=== PATIENT | female | born 1990 | race Caucasian/White ===

== ENCOUNTER 2019-11-09 21:36 | Emergency (ER) | payer OTHER, SELFPAY ==
[2019-11-09 21:47] LABS: Glucose Point of Care 360 (65-105)
[2019-11-09 21:49] VITALS: BP 137/80; PULSE 77; RESP 15; TEMP 37.3; O2SAT 97
[2019-11-09 22:22] LABS: Basophils Percent Auto 0.4 % (0.2-1.2); Eosinophils Percent Auto 0.5 % (0-4.4); Hematocrit 39.2 % (37.0-47.0); Hemoglobin 13.8 g/dL (12.0-15.0); Immature Granulocyte Absolute 0.02 K/mm3 (0.00-0.031); Immature Granulocyte Percent A 0.3 % (0-0.5); Lymphocytes Absolute Auto 2.32 K/mm3 (0.9-3.2); Lymphocytes Percent Auto 30.2 % (18.3-44.2); Mean Corpuscular HGB Conc 35.2 g/dl (32-36); Mean Corpuscular Hemoglobin 32.9 pg (26-34); Mean Corpuscular Volume 93.3 fl (80-100); Mean Platelet Volume 11.8 fl (7.4-10.4); Monocytes Absolute Auto 0.4 K/mm3 (0.1-0.6); Monocytes Percent Auto 4.8 % (2.6-8.5); Neutrophils Absolute Auto 4.9 K/mm3 (1.3-6.7); Neutrophils Percent Auto 63.8 % (45.5-73.1); Platelet Count Result 226 k/mm3 (150-375); Red Cell Distribution Width 11.6 % (11.5-14.5); White Blood Count 7.7 K/mm3 (4.5-10.0)
[2019-11-09 22:37] LABS: Add Urine Microscopic? YES; Appearance Urine Clear (Clear); Bilirubin Urine Negative (Negative); Blood Urine Negative (Negative); Color Urine Straw (Yellow); Glucose Urine UA 3+ mg/dL (Negative); Ketones Urine 2+ mg/dL (Negative); Leukocyte Esterase Ur Negative LEU/UL (Negative); Mucus Urine Rare /lpf; Nitrate Urine Negative (Negative); Protein Urine Negative (Negative); RBC Urine 0-2 /hpf (0-2); Squamous Epithelial Cell Urine Occasional /hpf (Few); Urobilinogen Urine Negative mg/dL (<2.0); WBC Urine 0-3 /hpf
[2019-11-09 22:38] LABS: Alanine Aminotransferase 21 U/L (4-35); Albumin Level 4.3 g/dL (3.5-5.1); Alkaline Phosphatase 45 U/L (38-126); Aspartate Amino Transferase 19 U/L (14-36); Bilirubin,Total 0.6 mg/dL (0.2-1.3); Blood Urea Nitrogen 15 mg/dL (7-17); Calcium 8.7 mg/dL (8.4-10.2); Carbon Dioxide 24 mmol/L (22-30); Chloride 102 mmol/L (98-107); Estimated Glomerular Filt Rate > 60; Glucose 328 mg/dL (65-105); Magnesium 1.9 mg/dL (1.6-2.3); Potassium 3.9 mmol/L (3.4-5.0); Sodium 136 mmol/L (137-145)
[2019-11-09 22:39] LABS: Specific Grav Ur 1.037 (1.001-1.035)
[2019-11-09] MEDS: SODIUM CHLORIDE 0.9% IV 1,000 ML 999 ML IV CONT (23:28)
--- NOTE | 2019-11-09 23:38 | ED.NAVMDI ---
HPI - Nausea/Vomiting/Diarrhea General Chief complaint: Recheck/Abnormal Lab/Rx Stated complaint: Possible DKA Time Seen by Provider: 11/09/19 23:10 History of Present Illness HPI Narrative: 29 yo female w/ h/o type I DM presents c/o possible DKA. She reports that she has not been feeling well for a couple of days. She is feeling nauseated. She has been having trouble controling her blood sugar and when she checked her urine it was positive for ketones. Related Data Home Medications Medication Instructions Recorded Confirmed insulin aspart U-100 100 unit/mL 1 sliding scale dose SUB-Q 03/27/19 10/30/19 subcutaneous solution USEASDIRECTD losartan 25 mg tablet 25 mg PO DAILY 10/30/19 10/30/19 Allergies Allergy/AdvReac Type Severity Reaction Status Date / Time hydromorphone Allergy Unknown Rash Verified 11/09/19 21:50 morphine Allergy Unknown Rash Verified 11/09/19 21:50 sulfamethizole Allergy Unknown Rash Verified 11/09/19 21:50 trimethoprim Allergy Unknown Rash Verified 11/09/19 21:50 sulfamethoxazole Allergy Rash Verified 11/09/19 21:50 [From Bactrim] HYDROMORPHONE HCL Allergy Unknown Rash Uncoded 11/09/19 21:50 Review of Systems Review of Systems: All systems reviewed & are unremarkable except as noted in HPI and below Constitutional: Constitutional: Reports fever(s) ENT: Denies sore throat Cardiovascular: Cardiovascular: Denies chest pain Gastrointestinal: Gastrointestinal: Denies abdominal pain and Reports nausea Genitourinary: Genitourinary: Denies hematuria and Denies dysuria Neurologic: Reports dizziness Psychiatric: Psychiatric: Reports anxiety [facility] [place] Past Medical History Medical History Anxiety Depression Type 1 diabetes mellitus without complication Surgical History Surgical History History of appendectomy History of section History of cholecystectomy Family History Family History Mother Family history of malignant neoplasm of gastrointestinal tract Other Carcinoma of colon Depression Family history of cardiovascular disease Family history of lymphoma Family history of malignant neoplasm Family history of malignant neoplasm of breast Family history of thyroid disease Social History Social History Smoking status: Former smoker Alcohol intake: current Gender identity (if verbalized by the patient): Female Exam Const: General: healthy appearing, no acute distress and alert Orientation/consciousness: patient oriented x3 HENMT: Head: normal to inspection Neck: Neck: normal visual inspection and no lymphadenopathy Chest: Chest palpation & inspection: no tenderness Resp: Effort & Inspection: normal respiratory effort Auscultation: clear to auscultation bilaterally, no rales, no rhonchi and no wheezes Cardio: Jugular venous distension: no JVD Rate: regular rate Rhythm: regular rhythm Heart sounds: no murmurs GI: Inspection: non-distended GI Palp: Yes Soft to palpation and No Tenderness to palpation present (GI) Skin: General skin exam: normal color Neuro: General: patient oriented x3 and moves all extremities Speech: normal speech Extrem: General: no edema Psych: Appearance: well kempt Affect: normal affect Course Vital Signs Vital signs: Vital Signs Temperature 37.3 C 11/09/19 21:49 Pulse Rate 77 11/09/19 21:49 Respiratory Rate 15 11/09/19 21:49 Blood Pressure 137/80 11/09/19 21:49 Pulse Oximetry 97 11/09/19 21:49 Temperature 36.8 C 11/10/19 01:00 Pulse Rate 78 11/10/19 01:00 Respiratory Rate 16 11/10/19 01:00 Blood Pressure 118/73 11/10/19 01:00 Pulse Oximetry 98 11/10/19 01:00 MDM - Nausea/Vomiting/Diarrhea MDM Narrative Medical decision making narrative: She
[2019-11-09 23:43] LABS: Beta-Hydroxybutyrate/Acetoacetate 0.73 mmol/L (0.02-0.27)
[2019-11-10] MEDS: SODIUM CHLORIDE 0.9% IV 1,000 ML 999 ML IV CONT (00:26)
[2019-11-10 00:51] LABS: Glucose Point of Care 144 (65-105)
[2019-11-10 01:00] VITALS: BP 118/73; PULSE 78; RESP 16; TEMP 36.8; O2SAT 98
== END 2019-11-10 01:00 | disposition home or self-care (01) ==
PROVIDERS: Emergency Provider Emergency Medicine; PCP Internal Medicine
DX: E10.65 Type 1 diabetes mellitus with hyperglycemia (principal); Z79.4 Long term (current) use of insulin; Z87.891 Personal history of nicotine dependence
CPT/HCPCS: 36415; 80053; 81001; 81025; 82010; 82948; 83735; 84100; 85025; 96360; 96361; 99283; J7030

== ENCOUNTER 2020-01-30 11:52 | Outpatient (CLI) | payer OTHER, SELFPAY ==
--- NOTE | ~2020-01-30 | XR_ITS ---
XR wrist LT min 3V DATE: 01/30/2020 12:16 INDICATION: Left wrist pain. No injury. TECHNIQUE: 4 views COMPARISON: None FINDINGS: No fracture or dislocation, periosteal reaction or bone destruction. No chondrocalcinosis o r erosive change. Joint spaces are preserved. IMPRESSION: Negative Reviewed, dictated and finalized at location A. IMPRESSION: Negative
== END 2020-01-30 11:53 | disposition home or self-care (01) ==
LOC: ANHIMG 12:00
PROVIDERS: PCP Internal Medicine; Visit Provider Internal Medicine
DX: M25.539 Pain in unspecified wrist (principal)
CPT/HCPCS: 73110

== ENCOUNTER 2020-02-12 07:07 | Outpatient (CLI) | payer OTHER, SELFPAY ==
[2020-02-12 07:45] LABS: Basophils Percent Auto 0.3 % (0.2-1.2); Eosinophils Percent Auto 0.4 % (0-4.4); Hematocrit 37.7 % (37.0-47.0); Hemoglobin 12.9 g/dL (12.0-15.0); Immature Granulocyte Absolute 0.02 K/mm3 (0.00-0.031); Immature Granulocyte Percent A 0.3 % (0-0.5); Lymphocytes Absolute Auto 1.44 K/mm3 (0.9-3.2); Lymphocytes Percent Auto 20.9 % (18.3-44.2); Mean Corpuscular HGB Conc 34.2 g/dl (32-36); Mean Corpuscular Volume 96.4 fl (80-100); Mean Platelet Volume 10.8 fl (7.4-10.4); Monocytes Absolute Auto 0.4 K/mm3 (0.1-0.6); Monocytes Percent Auto 5.4 % (2.6-8.5); Neutrophils Percent Auto 72.7 % (45.5-73.1); Platelet Count Result 241 k/mm3 (150-375); Red Blood Count 3.91 M/mm3 (4.2-5.4); Red Cell Distribution Width 11.7 % (11.5-14.5); White Blood Count 6.9 K/mm3 (4.5-10.0)
[2020-02-12 07:53] LABS: Hemoglobin A1C 8.9 % (<5.7)
[2020-02-12 07:56] LABS: Alanine Aminotransferase 19 U/L (4-35); Albumin Level 3.8 g/dL (3.5-5.1); Alkaline Phosphatase 38 U/L (38-126); Anion Gap 5 mmol/L (8-16); Aspartate Amino Transferase 20 U/L (14-36); Bilirubin,Total 0.2 mg/dL (0.2-1.3); Blood Urea Nitrogen 16 mg/dL (7-17); Calcium 8.7 mg/dL (8.4-10.2); Carbon Dioxide 29 mmol/L (22-30); Chloride 103 mmol/L (98-107); Estimated Glomerular Filt Rate > 60; Glucose 285 mg/dL (65-105); Sodium 137 mmol/L (137-145)
[2020-02-12 08:15] LABS: Creatinine Urine 89.6 mg/dL
[2020-02-12 08:21] LABS: MALB Creatinine Ratio 39.8 mg/g (0-30); Microalbumin Urine Random 35.7 mg/L (0-16.7)
[2020-02-12 08:32] LABS: Vitamin D 25 Hydroxy 44.8 ng/mL
== END 2020-02-12 07:08 | disposition home or self-care (01) ==
PROVIDERS: PCP Internal Medicine
DX: E10.65 Type 1 diabetes mellitus with hyperglycemia (principal); Z79.4 Long term (current) use of insulin
CPT/HCPCS: 36415; 80053; 82043; 82306; 83036; 84443; 85025

== ENCOUNTER 2020-05-04 08:34 | Outpatient (NON) | payer OTHER, SELFPAY ==
[2020-05-04 22:22] LABS: SARS-CoV-2 RNA PCR Positive
== END 2020-05-04 08:35 ==
LOC: ANHCOVIDDT 08:36
PROVIDERS: Visit Provider Pediatrics
DX: U07.1 COVID-19 (principal)
CPT/HCPCS: C9803; U0003

== ENCOUNTER 2020-05-05 10:51 | Outpatient (CLI) | payer OTHER, SELFPAY ==
--- NOTE | ~2020-05-05 | XR_ITS ---
EXAMINATION: XR chest 2V DATE: 05/05/2020 11:09 INDICATION: Shortness of breath and cough TECHNIQUE: PA and lateral views of the chest are obtained. COMPARISON: 06/10/2017 FINDINGS: There is minimal opacity of the right middle lobe. There is no pleural effusion or pneumoth orax. The cardiomediastinal silhouette is normal. Surgical clips in the right upper quadrant are like ly from prior cholecystectomy. IMPRESSION: 1. No acute cardiopulmonary abnormality. Reviewed, dictated and finalized at location A. ER INSPECTOR
== END 2020-05-05 10:52 | disposition home or self-care (01) ==
PROVIDERS: PCP Internal Medicine; Visit Provider Internal Medicine
DX: U07.1 COVID-19 (principal)
CPT/HCPCS: 71046

== ENCOUNTER → 2020-05-18 12:07 | Outpatient (CLI) | payer OTHER, SELFPAY ==
--- NOTE | ~2020-05-18 | XR_ITS ---
EXAMINATION: XR chest 2V DATE: 05/18/2020 12:23 INDICATION: COVID-19 pneumonia. Bacterial pneumonia. TECHNIQUE: Frontal and lateral views of the chest were obtained. COMPARISON: Chest 2 views 05/05/2020 FINDINGS: The chest demonstrates clear lungs without pneumonia, pleural effusion, or pneumothorax. Th e heart size is normal. There are surgical clips in the abdomen. IMPRESSION: 1. No acute cardiopulmonary disease. Reviewed, dictated and finalized at location A. OARD MOTORBOAT OPERATOR
== END ==
PROVIDERS: PCP Internal Medicine; Visit Provider Internal Medicine
DX: U07.1 COVID-19 (principal)
CPT/HCPCS: 71046

== ENCOUNTER 2020-08-05 06:47 | Outpatient (CLI) | payer OTHER, SELFPAY ==
[2020-08-05 07:46] LABS: Hematocrit 41.2 % (37.0-47.0); Hemoglobin 14.1 g/dL (12.0-15.0); Mean Corpuscular HGB Conc 34.2 g/dl (32-36); Mean Corpuscular Hemoglobin 32.2 pg (26-34); Mean Corpuscular Volume 94.1 fl (80-100); Mean Platelet Volume 11.1 fl (7.4-10.4); Platelet Count Result 226 k/mm3 (150-375); Red Blood Count 4.38 M/mm3 (4.2-5.4); Red Cell Distribution Width 11.8 % (11.5-14.5); White Blood Count 5.4 K/mm3 (4.5-10.0)
[2020-08-05 08:16] LABS: Beta HCG Quantitative < 2.39 mIU/ML
[2020-08-05 08:43] LABS: Free T4 Free Thyroxine 0.81 ng/mL (0.78-2.19)
== END 2020-08-05 06:48 | disposition home or self-care (01) ==
PROVIDERS: PCP Internal Medicine; Visit Provider Obstetrics & Gynecology Gynecology
DX: R93.89 Abnormal findings on diagnostic imaging of other specified body structures (principal)
CPT/HCPCS: 36415; 84146; 84439; 84443; 84702; 85027

== ENCOUNTER 2020-10-12 09:43 | Emergency (ER) | payer OTHER, SELFPAY ==
--- NOTE | ~2020-10-12 | XR_ITS ---
EXAMINATION: XR chest 2V DATE: 10/12/2020 12:33 INDICATION: Shortness of breath TECHNIQUE: PA and lateral views of the chest are obtained. COMPARISON: 05/18/2020 FINDINGS: The lungs are free of acute opacities. There is no pleural effusion or pneumothorax. The ca rdiomediastinal silhouette is normal. The visualized bones and soft tissues are unremarkable. IMPRESSION: 1. No acute cardiopulmonary abnormality. Reviewed, dictated and finalized at location A.
[2020-10-12 10:11] VITALS: BP 133/81; PULSE 109; RESP 18; TEMP 36.7; O2SAT 100
[2020-10-12 10:27] LABS: Basophils Percent Auto 0.3 % (0.2-1.2); Eosinophils Percent Auto 0.4 % (0-4.4); Hematocrit 43.5 % (37.0-47.0); Hemoglobin 14.9 g/dL (12.0-15.0); Immature Granulocyte Absolute 0.02 K/mm3 (0.00-0.031); Immature Granulocyte Percent A 0.3 % (0-0.5); Lymphocytes Absolute Auto 1.69 K/mm3 (0.9-3.2); Lymphocytes Percent Auto 23.2 % (18.3-44.2); Mean Corpuscular HGB Conc 34.3 g/dl (32-36); Mean Corpuscular Hemoglobin 32.8 pg (26-34); Mean Corpuscular Volume 95.8 fl (80-100); Mean Platelet Volume 10.4 fl (7.4-10.4); Monocytes Absolute Auto 0.4 K/mm3 (0.1-0.6); Monocytes Percent Auto 5.9 % (2.6-8.5); Neutrophils Absolute Auto 5.1 K/mm3 (1.3-6.7); Neutrophils Percent Auto 69.9 % (45.5-73.1); Platelet Count Result 258 k/mm3 (150-375); Red Blood Count 4.54 M/mm3 (4.2-5.4); Red Cell Distribution Width 11.9 % (11.5-14.5); White Blood Count 7.3 K/mm3 (4.5-10.0)
[2020-10-12 10:37] LABS: Add Urine Microscopic? YES; Appearance Urine Clear (Clear); Bilirubin Urine Negative (Negative); Blood Urine Negative (Negative); Color Urine Yellow (Yellow); Glucose Urine UA 3+ mg/dL (Negative); Ketones Urine 2+ mg/dL (Negative); Leukocyte Esterase Ur Negative LEU/UL (Negative); Mucus Urine Rare /lpf; Nitrate Urine Negative (Negative); Protein Urine 2+ mg/dL (Negative); Squamous Epithelial Cell Urine Few /hpf (Few); WBC Urine 0-3 /hpf
[2020-10-12 10:38] LABS: Alanine Aminotransferase 18 U/L (4-35); Albumin Level 4.5 g/dL (3.5-5.1); Alkaline Phosphatase 57 U/L (38-126); Anion Gap 10 mmol/L (8-16); Aspartate Amino Transferase 20 U/L (14-36); Bilirubin,Total 0.8 mg/dL (0.2-1.3); Blood Urea Nitrogen 16 mg/dL (7-17); Calcium 10.1 mg/dL (8.4-10.2); Carbon Dioxide 24 mmol/L (22-30); Chloride 101 mmol/L (98-107); Estimated CRCL calculation 103 ml/min; Estimated Glomerular Filt Rate > 60; Glucose 276 mg/dL (65-105); Magnesium 1.8 mg/dL (1.6-2.3); Phosphorus 2.5 mg/dL (2.5-4.5); Potassium 4.1 mmol/L (3.4-5.0); Sodium 135 mmol/L (137-145)
[2020-10-12 10:42] LABS: Specific Grav Ur 1.042 (1.001-1.035)
[2020-10-12 10:42] LABS: Beta-Hydroxybutyrate/Acetoacetate 1.84 mmol/L (0.02-0.27)
[2020-10-12 11:46] VITALS: BP 130/84; PULSE 88; RESP 17; O2SAT 100
[2020-10-12 11:50] LABS: Glucose Point of Care 224 mg/dl (65-105)
[2020-10-12] MEDS: SODIUM CHLORIDE 0.9% IV 1,000 ML 999 ML IV CONT ×2 (12:04→12:21)
--- NOTE | 2020-10-12 12:12 | ECG_ITS ---
Measurements Intervals [place] Rate: 79 P: 64 [place]: 134 QRS: 60 QRSD: 85 T: 21 QT: 382 QTc: 440 Interpretive Statements SINUS RHYTHM POSSIBLE LEFT ATRIAL ENLARGEMENT ST ELEVATION IN DIFFUSE LEADS- PROBABLY EARLY REPOLARIZATION BORDERLINE ECG Electronically Signed On 10-12-2020 12:28:48 CDT by Manoj Contreras D.O.
--- NOTE | 2020-10-12 12:18 | ED.RECABL ---
HPI - Recheck/Abnormal Lab/Rx General Chief Complaint: Recheck/Abnormal Lab/Rx Stated Complaint: possible DKA Time Seen by Provider: 10/12/20 11:50 Source: patient Mode of arrival: ambulatory Limitations: no limitations History of Present Illness HPI narrative: This is a 30-year-old female that presents to the emergency department for hyperglycemia. Reports she was out on the [place] yesterday. She started to feel very dry and her blood sugars were elevated. Reports when she woke up this morning she felt worse. She also has a headache. She reported some exertional shortness of breath this morning which is kind of relieved now. Denies fever, sore throat, cough, abdominal pain, vomiting, or dysuria. Related Data Home Medications Medication Instructions Recorded Confirmed insulin aspart U-100 100 unit/mL 1 sliding scale dose SUB-Q 03/27/19 10/07/20 subcutaneous solution USEASDIRECTD losartan 25 mg tablet 25 mg PO DAILY 10/30/19 10/07/20 insulin lispro [Humalog U-100 10/12/20 Insulin] Allergies Allergy/AdvReac Type Severity Reaction Status Date / Time hydromorphone Allergy Unknown Rash Verified 10/12/20 11:40 morphine Allergy Unknown Rash Verified 10/12/20 11:40 sulfamethizole Allergy Unknown Rash Verified 10/12/20 11:40 trimethoprim Allergy Unknown Rash Verified 10/07/20 07:55 sulfamethoxazole Allergy Rash Verified 10/12/20 11:40 [From Bactrim] Review of Systems Review of Systems: Narrative: CONSTITUTIONAL: Denies fever ENT: Denies rhinorrhea, congestion, sore throat CARDIOVASCULAR: Denies chest pain RESPIRATORY: Reports dyspnea. Denies cough GASTROINTESTINAL: Denies abdominal pain, nausea, vomiting GENITOURINARY: Denies dysuria All systems reviewed & are unremarkable except as noted in HPI and below PMFSH Past Medical History Medical History (Updated 10/12/20 @ 15:13 by Dixie Dillon PA-C) Anxiety Close exposure to COVID-19 virus Depression Type 1 diabetes mellitus without complication Surgical History Surgical History History of appendectomy History of section History of cholecystectomy Family History Family History Mother Family history of malignant neoplasm of gastrointestinal tract Other Carcinoma of colon Depression Family history of cardiovascular disease Family history of lymphoma Family history of malignant neoplasm Family history of malignant neoplasm of breast Family history of thyroid disease Social History Social History Smoking status: Never smoker Alcohol intake: current Gender identity (if verbalized by the patient): Female Exam Narrative: Exam Narrative: GENERAL: Well-appearing, well-nourished, and in no acute distress. HEAD: Normocephalic, atraumatic. EYES: EOMI. ENT: Nares clear, no rhinorrhea or epistaxis. Mucous membranes moist. Oropharynx without tonsillar hypertrophy exudate or other lesions. Bilateral TMs pearly hernandez non-bulging NECK: Supple. No adenopathy or masses. CHEST: Clear to auscultation. No respiratory distress. No wheezes rales or rhonchi HEART: Regular rate and rhythm. No murmur heard. Normal peripheral pulses. ABDOMEN: Soft, nontender, nondistended, normal active bowel sounds. No CVA tenderness EXTREMITIES: Normal range of motion. No edema. SKIN: Warm, dry, no rash. NEURO: No focal deficits. Alert and oriented x3. PSYCH: Normal mood and affect Course Vital Signs Vital signs: Vital Signs Temperature 98.1 F 10/12/20 10:11 Pulse Rate 109 H 10/12/20 10:11 Respiratory Rate 18 10/12/20 10:11 Blood Pressure 133/81 10/12/20 10:11 Pulse Oximetry 100 10/12/20 10:11 Temperature 98.1 F 10/12/20 10:11 Pulse Rate 81 10/12/20 13:18 Respiratory Rate 16 10/12/20 13:18 Blood Pressure 119/85 10/12/20 13:18 Pulse Oximetry 100
[2020-10-12 13:18] VITALS: BP 119/85; PULSE 81; RESP 16; O2SAT 100
[2020-10-12 14:46] LABS: Glucose Point of Care 104 mg/dl (65-105)
[2020-10-12 15:58] VITALS: BP 119/85; PULSE 80; RESP 18; O2SAT 98
== END 2020-10-12 16:07 | disposition home or self-care (01) ==
PROVIDERS: Emergency Provider Emergency Medicine; PCP Internal Medicine
DX: E10.65 Type 1 diabetes mellitus with hyperglycemia (principal); E86.0 Dehydration; Z79.4 Long term (current) use of insulin
CPT/HCPCS: 36415; 71046; 80053; 81001; 81025; 82010; 82948; 83735; 84100; 85025; 93005; 96361; 96365; 99284; J0131; J7030

== ENCOUNTER 2021-02-07 10:47 | Emergency (ER) | payer OTHER, SELFPAY ==
[2021-02-07 10:53] VITALS: BP 125/75; PULSE 91; RESP 18; TEMP 36.6; O2SAT 100
--- NOTE | 2021-02-07 11:26 | ED.URI ---
HPI - URI/Sore Throat General Chief Complaint: Upper Respiratory Infection Stated Complaint: SORE THROAT Time Seen by Provider: 02/07/21 11:22 Source: patient and RN notes reviewed Mode of arrival: ambulatory Limitations: no limitations History of Present Illness HPI Narrative: 30-year-old female presents with concern for sore throat. Reports pain with swallowing. She denies nasal congestion, rhinorrhea, cough, headache, nausea, vomiting, body aches, chills, fever. Denies known sick contacts. She is taken [id number] cold medicines with no relief MD elicited complaint: sore throat Related Data Home Medications Medication Instructions Recorded Confirmed insulin aspart U-100 100 unit/mL 1 sliding scale dose SUB-Q 03/27/19 10/07/20 subcutaneous solution USEASDIRECTD losartan 25 mg tablet 25 mg PO DAILY 10/30/19 10/07/20 insulin lispro [Humalog U-100 10/12/20 Insulin] Allergies Allergy/AdvReac Type Severity Reaction Status Date / Time hydromorphone Allergy Unknown Rash Verified 10/12/20 11:40 morphine Allergy Unknown Rash Verified 10/12/20 11:40 sulfamethizole Allergy Unknown Rash Verified 10/12/20 11:40 trimethoprim Allergy Unknown Rash Verified 10/07/20 07:55 sulfamethoxazole Allergy Rash Verified 10/12/20 11:40 [From Bactrim] Review of Systems Review of Systems: CONSTITUTIONAL: Denies malaise, chills, sweats, or fever. EYES: Denies visual changes, redness, or discharge. ENT: Denies rhinorrhea, congestion, sinus pain, otalgia. Reports sore throat. CARDIOVASCULAR: Denies chest pain, palpitations, or edema. RESPIRATORY: Denies cough or dyspnea. GASTROINTESTINAL: Denies abdominal pain, nausea, vomiting, diarrhea SKIN: Denies rash or itching. MUSCULOSKELETAL: Denies myalgia. NEUROLOGIC: Denies headache. All systems reviewed & are unremarkable except as noted in HPI and below PMFSH Past Medical History Medical History Anxiety Close exposure to COVID-19 virus Depression Type 1 diabetes mellitus without complication Surgical History Surgical History History of appendectomy History of section History of cholecystectomy Family History Family History Mother Family history of malignant neoplasm of gastrointestinal tract Other Carcinoma of colon Depression Family history of cardiovascular disease Family history of lymphoma Family history of malignant neoplasm Family history of malignant neoplasm of breast Family history of thyroid disease Social History Social History Alcohol intake: current Gender identity (if verbalized by the patient): Female Comments At time of signature, agree with nursing past medical, surgical, social and family history. There is no relevant family history pertinent to the presenting complaint Exam Narrative: GENERAL: Well-appearing, well-nourished, and in no acute distress. HEAD: Normocephalic EYES: PERRLA, conjunctivae clear ENT: Nares clear. Mucous membranes moist. TM pearly hernandez with dull light reflex bilaterally; no tragal tenderness. Oropharynx erythematous without lesions. Tonsils enlarged and with yellow exudate, no drooling, no trismus, uvula midline. Mild hoarse voice NECK: Supple. No lymphadenopathy CHEST: Clear to auscultation, breath sounds equal. No wheezing, rhonchi, rales, or stridor. No respiratory distress, speaks in full sentences. HEART: Regular rate and rhythm. No murmur heard. SKIN: Warm, dry, no rash. NEURO: Alert and oriented x3. PSYCH: Normal mood and affect Course Course Emergency Course: Patient is aware of diagnosis, understands and agrees to treatment plan. Anticipatory guidance given. Patient agrees to follow-up as directed and is aware of reasons to seek care at the emergency department.
== END 2021-02-07 11:38 | disposition home or self-care (01) ==
PROVIDERS: Emergency Provider Nurse Practitioner; PCP Internal Medicine
DX: J03.90 Acute tonsillitis, unspecified (principal); E10.9 Type 1 diabetes mellitus without complications
CPT/HCPCS: 87081; 87147; 87880; 99213; G0463

== ENCOUNTER 2022-01-21 14:42 | Outpatient (CLI) | payer OTHER, SELFPAY ==
[2022-01-21 15:28] LABS: Hemoglobin A1C 8.9 % (<5.7)
[2022-01-21 15:33] LABS: Beta HCG Quantitative 320.93 mIU/ML
== END 2022-01-21 14:43 | disposition home or self-care (01) ==
LOC: ANHLAB 14:45
PROVIDERS: PCP Internal Medicine; Visit Provider Obstetrics & Gynecology Gynecology
DX: Z32.01 Encounter for pregnancy test, result positive (principal); O24.011 Pre-existing type 1 diabetes mellitus, in pregnancy, first trimester
CPT/HCPCS: 36415; 83036; 84702

== ENCOUNTER 2022-05-07 07:18 | Outpatient (CLI) | payer OTHER, SELFPAY ==
--- NOTE | 2022-05-07 | ECG_ITS ---
Measurements Intervals [place] Rate: 80 P: 60 [place]: 139 QRS: 56 QRSD: 79 T: 38 QT: 374 QTc: 433 Interpretive Statements SINUS RHYTHM NORMAL ECG COMPARED TO ECG 10/12/2020 12:24:38 NO SIGNIFICANT CHANGES Electronically Signed On 05-07-2022 8:10:41 TAXICAB DRIVER by Manoj Contreras D.O.
== END 2022-05-07 07:19 | disposition home or self-care (01) ==
LOC: ANHLAB 07:20 → ANHCARD 07:20
PROVIDERS: PCP Internal Medicine; Visit Provider Obstetrics & Gynecology
DX: O24.119 Pre-existing type 2 diabetes mellitus, in pregnancy, unspecified trimester (principal); Z3A.00 Weeks of gestation of pregnancy not specified
CPT/HCPCS: 93005

== ENCOUNTER 2022-08-05 09:30 | Outpatient (RCR) | payer OTHER, SELFPAY ==
[2022-07-04 17:44] VITALS: BP 140/73; PULSE 80
[2022-07-22 11:45] VITALS: BP 139/72; PULSE 80
[2022-07-29 09:32] VITALS: BP 138/67; PULSE 86
== END 2022-10-02 23:59 | disposition home or self-care (01) ==
LOC: ANHOBOP 09:30
PROVIDERS: PCP Internal Medicine; Visit Provider Obstetrics & Gynecology
DX: O24.419 Gestational diabetes mellitus in pregnancy, unspecified control (principal); O14.92 Unspecified pre-eclampsia, second trimester; Z3A.27 27 weeks gestation of pregnancy; Z3A.30 30 weeks gestation of pregnancy; Z3A.31 31 weeks gestation of pregnancy
CPT/HCPCS: 59025

== ENCOUNTER 2022-09-29 12:20 | Outpatient (CLI) | payer OTHER, SELFPAY ==
--- NOTE | ~2022-09-29 | US_ITS ---
US breast RT limited INDICATION: Mastoiditis. TECHNIQUE: Dedicated Limited right breast ultrasound COMPARISON: No prior studies for comparison. FINDINGS: The right breast is composed of normal heterogeneous echotexture without focal solid or cys tic mass. IMPRESSION: 1: Normal right breast ultrasound. BI-RADS CATEGORY 1 - NEGATIVE Reviewed, dictated and finalized at location A.
== END 2022-09-29 12:21 | disposition home or self-care (01) ==
PROVIDERS: PCP Internal Medicine
DX: N61.0 Mastitis without abscess (principal)
CPT/HCPCS: 76642

== ENCOUNTER 2023-02-03 10:15 | Outpatient (CLI) | payer OTHER, SELFPAY ==
[2023-02-03 10:29] LABS: Basophils Percent Auto 0.4 % (0.2-1.2); Eosinophils Absolute Auto 0.1 K/mm3 (0-0.3); Eosinophils Percent Auto 0.9 % (0-4.4); Hematocrit 40.4 % (37.0-47.0); Hemoglobin 13.6 g/dL (12.0-15.0); Immature Granulocyte Absolute 0.02 K/mm3 (0.00-0.031); Immature Granulocyte Percent A 0.2 % (0-0.5); Lymphocytes Absolute Auto 2.54 K/mm3 (0.9-3.2); Lymphocytes Percent Auto 31.6 % (18.3-44.2); Mean Corpuscular HGB Conc 33.7 g/dl (32-36); Mean Corpuscular Hemoglobin 31.9 pg (26-34); Mean Corpuscular Volume 94.6 fl (80-100); Mean Platelet Volume 10.6 fl (7.4-10.4); Monocytes Absolute Auto 0.5 K/mm3 (0.1-0.6); Monocytes Percent Auto 5.8 % (2.6-8.5); Neutrophils Absolute Auto 4.9 K/mm3 (1.3-6.7); Neutrophils Percent Auto 61.1 % (45.5-73.1); Platelet Count Result 247 k/mm3 (150-375); Red Blood Count 4.27 M/mm3 (4.2-5.4); Red Cell Distribution Width 12.8 % (11.5-14.5)
[2023-02-03 12:15] LABS: Alanine Aminotransferase 19 U/L (6-35); Albumin Level 4.4 g/dL (3.5-5.1); Alkaline Phosphatase 63 U/L (38-126); Anion Gap 5 mmol/L (8-16); Aspartate Amino Transferase 21 U/L (14-36); Bilirubin,Total 0.6 mg/dL (0.2-1.3); Blood Urea Nitrogen 19 mg/dL (7-17); Calcium 9.4 mg/dL (8.4-10.2); Carbon Dioxide 28 mmol/L (22-30); Chloride 102 mmol/L (98-107); Cholesterol 170 mg/dL (0-200); Estimated Glomerular Filt Rate > 60; Glucose 158 mg/dL (65-110); HDL Direct 59 mg/dL; Potassium 4.2 mmol/L (3.4-5.0); Sodium 135 mmol/L (137-145); Triglycerides 104 mg/dL (<150)
[2023-02-03 12:25] LABS: LDL Cholesterol Direct 87 mg/dL
[2023-02-03 12:38] LABS: Appearance Urine Clear (Clear); Bacteria Urine Rare /hpf; Bilirubin Urine Negative (Negative); Blood Urine Negative (Negative); Color Urine Yellow (Yellow); Glucose Urine UA Negative (Negative); Ketones Urine Negative (Negative); Leukocyte Esterase Ur Negative LEU/UL (NEGATIVE); Nitrate Urine Negative (Negative); Non Pathogenic Casts 0-2; Protein Urine 1+ mg/dL (Negative); RBC Urine 0-2 /hpf (0-2); Specific Grav Ur 1.018 (1.001-1.035); Squamous Epithelial Cell Urine Occasional /hpf (Few); Urobilinogen Urine 0.2 mg/dL (<2.0); WBC Urine 0-5 /hpf (0-3); pH Urine 5.5 (5.0-9.0)
[2023-02-03 12:42] LABS: Add Urine Microscopic? YES
== END 2023-02-03 10:16 | disposition home or self-care (01) ==
LOC: ANHLAB 10:16
PROVIDERS: PCP Nurse Practitioner Family; Visit Provider Internal Medicine Hematology & Oncology
DX: Z13.0 Encounter for screening for diseases of the blood and blood-forming organs and certain disorders involving the immune mechanism (principal); Z87.448 Personal history of other diseases of urinary system; Z87.59 Personal history of other complications of pregnancy, childbirth and the puerperium; Z13.220 Encounter for screening for lipoid disorders; Z13.228 Encounter for screening for other metabolic disorders
CPT/HCPCS: 36415; 80053; 80061; 81001; 85025

== ENCOUNTER 2023-02-06 01:11 | Emergency (ER) | payer OTHER, SELFPAY ==
--- NOTE | ~2023-02-06 | CT_ITS ---
CT of the Abdomen and Pelvis: Indication: Abdominal pain Technique: 2.5 mm axial scans were obtained through the abdomen and pelvis following intravenous adm inistration of 100 cc of Omnipaque 350. Dose reduction technique was used on this scan by utilizing a utomated exposure control and iterative reconstruction technique. The dose-length product (DLP) was 1 064.75 mGy-cm. Findings: Scans through the lung bases are unremarkable. The liver, spleen, pancreas, adrenals and kidneys are within normal limits. Cholecystectomy clips are present. No evidence of aortic aneurysm. No lymphadenopathy. No bowel obstruction or bowel wall thickening. There is no evidence to suggest acute appendicitis. Images through the pelvis were performed. Urinary bladder unremarkable. No adnexal mass seen. No asci salty. Impression: No significant abnormalities seen. Reviewed, dictated and finalized at [facility]. Impression: No significant abnormalities seen.
[2023-02-06 01:16] VITALS: BP 140/89; PULSE 91; RESP 20; TEMP 36.4; O2SAT 100
--- NOTE | 2023-02-06 01:36 | ED.ABDPAIN ---
HPI - Abdominal Pain General Chief Complaint: Abdominal Pain Stated Complaint: Lower abd pain Time Seen by Provider: 02/06/23 01:19 History of Present Illness HPI narrative: Patient presents to the emergency department with lower abdominal pain that started yesterday afternoon. Pain has been persistent and gradually getting worse. Denies nausea vomiting. Denies fevers and chills. Pain is located throughout her lower abdomen described as cramping although 10 times worse . Pain more so left side than right side. Denies urinary symptoms. Patient denies having had pain like this in the past. Has a history of diabetes and hypertension Related Data Home Medications Medication Instructions Recorded Confirmed insulin lispro 100 unit/mL 10/12/20 02/03/23 subcutaneous solution (Humalog U-100 Insulin) famotidine 20 mg chewable tablet mg PO DAILY 11/24/22 02/03/23 hydrochlorothiazide 12.5 mg capsule 12.5 mg PO DAILY 11/24/22 02/03/23 losartan 100 mg tablet 100 mg PO DAILY 11/24/22 02/03/23 Allergies Allergy/AdvReac Type Severity Reaction Status Date / Time hydromorphone Allergy Unknown Rash Verified 02/06/23 01:19 morphine Allergy Unknown Rash Verified 02/06/23 01:19 sulfamethizole Allergy Unknown Rash Verified 02/06/23 01:19 trimethoprim Allergy Unknown Rash Verified 02/06/23 01:19 sulfamethoxazole Allergy Rash Verified 02/06/23 01:19 [From Bactrim] Review of Systems Review of Systems: Negative except what is documented [facility] the [facility] Past Medical History Medical History Anxiety Close exposure to COVID-19 virus Depression Type 1 diabetes mellitus without complication Surgical History Surgical History History of appendectomy History of section History of cholecystectomy Family History Family History Mother Family history of malignant neoplasm of gastrointestinal tract Other Carcinoma of colon Depression Family history of cardiovascular disease Family history of lymphoma Family history of malignant neoplasm Family history of malignant neoplasm of breast Family history of thyroid disease Social History Social History Smoking packs per day: 1 Smoking cigarettes per day: 20.0 Years smoked: 5 Smoking pack-years: 5.00 Smoking status: Former smoker Tobacco type: cigarettes Smoking end date: 04/24/16 Alcohol intake: current Alcohol use details: socially Substance use: never Substance use type: does not use Gender identity (if verbalized by the patient): Female Exam Narrative: GENERAL: Well-appearing, well-nourished, and in no acute distress. Uncomfortable HEAD: Normocephalic, atraumatic. EYES: PERRLA and EOMI. ENT: Nares clear, no rhinorrhea or epistaxis. Mucous membranes moist. NECK: Supple. CHEST: Clear to auscultation. No respiratory distress. HEART: Regular rate and rhythm. ABDOMEN: Soft, nontender, nondistended. EXTREMITIES: Normal range of motion. No edema. SKIN: Warm, dry, no rash. NEURO: No focal deficits. Alert and oriented x3. PSYCH: Normal mood and affect. Course Course Emergency Course: Differential diagnosis includes but not limited to small bowel obstruction, acute appendicitis, urinary tract infection, kidney stone Vital Signs Vital signs: Vital Signs Temperature 36.4 C 02/06/23 01:16 Pulse Rate 91 02/06/23 01:16 Respiratory Rate 20 02/06/23 01:16 Blood Pressure 140/89 02/06/23 01:16 Pulse Oximetry 100 02/06/23 01:16 Oxygen Delivery Room Air 02/06/23 01:16 Temperature 36.4 C 02/06/23 01:16 Pulse Rate 77 02/06/23 03:01 Respiratory Rate 15 02/06/23 03:01 Blood Pressure 151/80 H 02/06/23 03:01 Pulse Oximetry 100 02/06/23 03:01 Oxygen Delivery Room Air 02/06/23 0
[2023-02-06 01:37] LABS: Basophils Percent Auto 0.3 % (0.2-1.2); Eosinophils Absolute Auto 0.1 K/mm3 (0-0.3); Eosinophils Percent Auto 1.3 % (0-4.4); Hematocrit 41.8 % (37.0-47.0); Hemoglobin 13.8 g/dL (12.0-15.0); Immature Granulocyte Absolute 0.01 K/mm3 (0.00-0.031); Immature Granulocyte Percent A 0.1 % (0-0.5); Lymphocytes Absolute Auto 2.99 K/mm3 (0.9-3.2); Lymphocytes Percent Auto 37.8 % (18.3-44.2); Mean Corpuscular Hemoglobin 31.7 pg (26-34); Mean Corpuscular Volume 96.1 fl (80-100); Mean Platelet Volume 10.6 fl (7.4-10.4); Monocytes Absolute Auto 0.6 K/mm3 (0.1-0.6); Monocytes Percent Auto 7.5 % (2.6-8.5); Neutrophils Absolute Auto 4.2 K/mm3 (1.3-6.7); Platelet Count Result 239 k/mm3 (150-375); Red Blood Count 4.35 M/mm3 (4.2-5.4); Red Cell Distribution Width 12.7 % (11.5-14.5); White Blood Count 7.9 K/mm3 (4.5-10.0)
[2023-02-06] MEDS: ONDANSETRON HCL ODT 4 MG TABLET PO (01:39)
[2023-02-06] MEDS: DICYCLOMINE HCL 10 MG CAPSULE 20 MG PO (01:39)
[2023-02-06 01:43] LABS: Appearance Urine Cloudy (Clear); Bacteria Urine Rare /hpf; Bilirubin Urine Negative (Negative); Blood Urine Negative (Negative); Color Urine Yellow (Yellow); Glucose Urine UA Negative (Negative); Ketones Urine Negative (Negative); Leukocyte Esterase Ur Negative LEU/UL (Negative); Nitrate Urine Negative (Negative); Non Pathogenic Casts 0-2; Protein Urine 2+ mg/dL (Negative); RBC Urine 0-2 /hpf (0-2); Squamous Epithelial Cell Urine Few /hpf (Few); WBC Urine 0-5 /hpf; pH Urine 5.5 (5.0-9.0)
[2023-02-06 01:46] LABS: Specific Grav Ur 1.036 (1.001-1.035)
[2023-02-06 01:47] LABS: Add Urine Microscopic? YES
[2023-02-06 01:57] LABS: Alanine Aminotransferase 18 U/L (6-35); Albumin Level 4.2 g/dL (3.5-5.1); Alkaline Phosphatase 61 U/L (38-126); Anion Gap 6 mmol/L (8-16); Aspartate Amino Transferase 24 U/L (14-36); Bilirubin,Total 0.7 mg/dL (0.2-1.3); Blood Urea Nitrogen 23 mg/dL (7-17); Calcium 9.2 mg/dL (8.4-10.2); Carbon Dioxide 28 mmol/L (22-30); Chloride 102 mmol/L (98-107); Estimated CRCL calculation 97 ml/min; Estimated Glomerular Filt Rate > 60; Glucose 131 mg/dL (65-110); Lipase 88 U/L (23-300); Potassium 3.4 mmol/L (3.4-5.0); Sodium 136 mmol/L (137-145)
[2023-02-06 03:01] VITALS: BP 151/80; PULSE 77; RESP 15; O2SAT 100
[2023-02-06] MEDS: DICYCLOMINE HCL 10 MG CAPSULE PO (04:21)
[2023-02-06] MEDS: KETOROLAC 30 MG/ML VIAL (*BKC) IV PUSH (04:22)
[2023-02-06 04:24] VITALS: BP 151/101; PULSE 81; RESP 15; TEMP 37.1; O2SAT 99
== END 2023-02-06 04:25 | disposition home or self-care (01) ==
PROVIDERS: Emergency Provider Emergency Medicine; PCP Nurse Practitioner Family
DX: R10.32 Left lower quadrant pain (principal); E10.9 Type 1 diabetes mellitus without complications; Z87.891 Personal history of nicotine dependence; Z90.49 Acquired absence of other specified parts of digestive tract; Z79.4 Long term (current) use of insulin
CPT/HCPCS: 36415; 74177; 80053; 81001; 81025; 83690; 85025; 96374; 99284; A9270; J1885; Q9967

== ENCOUNTER 2023-02-28 16:04 | Outpatient (CLI) | payer OTHER, SELFPAY ==
--- NOTE | ~2023-02-28 | MM_ITS ---
EXAMINATION: MM screening epi BI w vera HISTORY: Screening TECHNIQUE: Craniocaudal and mediolateral oblique 3-D tomosynthesis images were obtained and synthetic 2-D images were generated. CAD analysis was submitted and interpreted. COMPARISON: No prior mammogram is available for comparison at this institution. BREAST PARENCHYMAL COMPOSITION: The breasts are heterogeneously dense, which may obscure small masses FINDINGS: There is no evidence of suspicious mass, calcification, or architectural distortion to sugg est malignancy in either breast. There has been no suspicious interval change. IMPRESSION: 1. No mammographic evidence of malignancy. 2. Recommend routine screening mammography in one year. BI-RADS Category 1: Negative Reviewed, dictated and finalized at location A. NNA SPECIALIST
== END 2023-02-28 16:05 | disposition home or self-care (01) ==
LOC: ANHIMG 16:05
PROVIDERS: PCP Nurse Practitioner Family; Visit Provider Nurse Practitioner Family
DX: Z12.31 Encounter for screening mammogram for malignant neoplasm of breast (principal)
CPT/HCPCS: 77063; 77067

== ENCOUNTER 2023-07-07 01:23 | Emergency (ER) | payer OTHER, SELFPAY ==
[2023-07-07 04:59] LABS: Influenza A QL RT-PCR Negative (Negative); Influenza B QL RT-PCR Negative (Negative); RSV RNA, RT-PCR Negative (Negative); SARS-CoV-2 RNA PCR Negative (Negative)
[2023-07-07 05:02] LABS: Strep Group A RT-PCR NOT DETECTED (Negative)
== END 2023-07-08 03:15 | disposition home or self-care (01) ==
PROVIDERS: Emergency Provider Physician Assistant; PCP Nurse Practitioner Family
DX: B34.9 Viral infection, unspecified (principal); Z20.822 Contact with and (suspected) exposure to COVID-19
CPT/HCPCS: 87637; 87651; 99283